=== PATIENT | female | born 1940 | race Caucasian/White ===

== ENCOUNTER 2020-07-02 23:23 | Emergency (ER) | payer OTHER ==
[~2020-07-02] VITALS: Ht 160 cm; Wt 76.2 kg
[2020-07-02 23:31] VITALS: BP_SYST 193
--- NOTE | 2020-07-02 23:37 | NUR ---
Patient triaged and placed in waiting room. VSS and patient appears in no acute distress at this time. Accompanied by SON, awaiting available bed, and MD notified of need for MSE.
--- NOTE | 2020-07-03 01:00 | NUR ---
Patient to ER bed 01 to gown for evaluation. Side rails up.
--- NOTE | 2020-07-03 01:05 | NUR ---
PT BROUGHT IN BY SON. PT AWAKE, ALERT, ORIENTED X4. PT AND SON STATE THAT PATIENT HAD HYPERTENSIVE EPISODE X1 TODAY WITH MAXIMUM BLOOD PRESSURE 247/112. PT STATES SHE CALLED THE NURSE LINE AND WAS TOLD SHE CAN TAKE 5MG ADDITIONAL AMLODIPINE, WHICH SHE TOOK AT 11PM. PT STATES THAT SHE HAD MILD HEADACHE AND TRANSIENT CHEST PAIN FOR A FEW MINUTES, WHICH RESOLVED WITHOUT INTERVENTION. PT NOW RESTING IN ED BED. NO ACUTE DISTRESS AT THIS TIME. PT ATTACHED TO TELEMETRY AND SPO2 MONITORING. PT DENIES ANY SHORTNESS OF BREATH, NAUSEA, VOMITING, DIARRHEA OR COLD/FLU-LIKE SYMPTOMS AT THIS TIME.
--- NOTE | 2020-07-03 01:15 | NUR ---
ER at bedside examining patient.
[2020-07-03 01:49] LABS: BASOPHILS # (AUTO) 0.1 K/uL (0.0-0.2); BASOPHILS % (AUTO) 0.8 % (0.0-2.0); EOSINOPHILS # (AUTO) 0.3 K/uL (0.0-0.4); EOSINOPHILS % (AUTO) 3.7 % (0.0-4.0); HEMATOCRIT 39.3 % (36-48); LYMPHOCYTES % (AUTO) 25.1 % (20.5-51.5); MEAN CORPUSCULAR HEMOGLOBIN 30 pg (27-31); MEAN CORPUSCULAR HGB CONC 33 % (32-36); MEAN CORPUSCULAR VOLUME 90 fL (79.0-98.0); MONOCYTES # (AUTO) 0.9 K/uL (0.0-1.0); MONOCYTES % (AUTO) 10.8 % (1.7-9.3); NEUTROPHILS # (AUTO) 4.8 K/uL (1.8-7.7); NEUTROPHILS % (AUTO) 59.6 % (40.0-70.0); PLATELET COUNT (AUTO) 299 K/uL (130-430); RED BLOOD CELL COUNT(AUTO) 4.38 MIL/uL (4.2-6.2); RED CELL DISTRIBUTION WIDTH 13.6 % (9.0-15.0)
[2020-07-03 02:01] LABS: ANION GAP 5 (5-15); CALCIUM 8.9 mg/dL (8.4-11.0); CHLORIDE 103 mmol/L (98-107); CREATININE 0.71 mg/dL (0.55-1.30); GLUCOSE 164 mg/dL (70-99); POTASSIUM 3.1 mmol/L (3.5-5.1); SODIUM SERUM 137 mmol/L (136-145); UREA NITROGEN, BLOOD 12 mg/dL (8-21)
[2020-07-03 02:07] LABS: ALANINE AMINOTRANSFERASE 41 U/L (12-78); ALBUMIN 3.9 g/dL (3.4-4.8); ASPARTATE AMINOTRANSFERASE 25 U/L (10-37); TOTAL BILIRUBIN 0.5 mg/dL (0.0-1.0)
[2020-07-03 02:11] LABS: PROTHROMBIN TIME 9.9 SECS (9.5-12.5)
--- NOTE | 2020-07-03 02:11 | NUR ---
PT RESTING IN ED BED COMFORTABLY. VSS. NO ACUTE DISTRESS
[2020-07-03 02:44] LABS: BILIRUBIN,URINE NEGATIVE (NEGATIVE); BLOOD, URINE NEGATIVE (NEGATIVE); CLARITY/URINE CLEAR (CLEAR); COLOR,URINE YELLOW (YELLOW); GLUCOSE,URINE NEGATIVE (NEGATIVE); KETONES,URINE NEGATIVE (NEGATIVE); LEUKOCYTE ESTERASE ,URINE TRACE (NEGATIVE); NITRITE, URINE NEGATIVE (NEGATIVE); PH,URINE 7.5 (5.0-8.0); PROTEIN URINE NEGATIVE (NEGATIVE); UROBILINOGEN,URINE 0.2 (0.2-1.0)
[2020-07-03 02:46] LABS: BACTERIA,URINE FEW /HPF (None Seen); RBC,URINE 0-3 /HPF (0-3)
[2020-07-03] MEDS ORDERED: POTASSIUM CHLORIDE 10 MEQ TAB.PRT.SR PO ONE (03:15)
[2020-07-03] MEDS ORDERED: POTASSIUM CHLORIDE 10 MEQ TAB.PRT.SR ONE (03:28)
--- NOTE | 2020-07-03 03:35 | NUR ---
PT SON CALLED FOR TRANSPORT, INFORMED HIM AT PATIENTS REQUEST OF PLAN OF CARE. STATES HE WILL BE HERE IN A FEW MINUTES FOR TRANSPORT HOME
[2020-07-03 03:54] VITALS: BP_SYST 134
--- NOTE | 2020-07-03 03:54 | NUR ---
Patient given written and verbal discharge instructions and verbalizes understanding. ER MD discussed with patient the results and treatment provided. Patient in stable condition. ID arm band removed. NO IV Rx of POTASSIUM CHLORIDE given. Patient educated on pain management and to follow up with PMD. Pain Scale 0/10 Opportunity for questions provided and answered. Medication side effect fact sheet provided.
== END 2020-07-03 01:00 | disposition home or self-care (01) ==
LOC: SED 23:23
DX: R07.89 Other chest pain (principal); I10 Essential (primary) hypertension; Z88.2 Allergy status to sulfonamides; Z88.8 Allergy status to other drugs, medicaments and biological substances
CPT/HCPCS: 36415; 71045; 80053; 81000-TC; 84484; 85025; 85379; 85610-TC; 85730-TC; 93005; 99283; 99284; 99285